=== PATIENT | female | born 1945 | race Caucasian/White ===

== ENCOUNTER → 2017-12-10 | Outpatient (CLI) | payer MEDICARE, BC ==
[~2017-12-10] MED LIST: HYDACE5 PO; IBUP400
== END | disposition home or self-care (01) ==
LOC: LAB SHORT 08:58 → LAB EV 08:58
DX: J34.89 Other specified disorders of nose and nasal sinuses (principal)
CPT/HCPCS: 87070; 87205

== ENCOUNTER → 2018-09-21 | Outpatient (CLI) | payer MEDICARE, BC ==
[2018-09-21 14:24] LABS: Stool Occult Bld Immuno 1 Negative (NEGATIVE)
== END | disposition home or self-care (01) ==
LOC: LAB 12:50 → LAB SHORT 12:50
PROVIDERS: Family Medicine
DX: Z12.11 Encounter for screening for malignant neoplasm of colon (principal)
CPT/HCPCS: G0328

== ENCOUNTER 2019-01-28 08:10 | Day surgery (SDC) | payer MEDICARE, BC ==
[~2019-01-28] VITALS: Ht 152.4 cm; Wt 66.9 kg
[~2019-01-28 08:10] MED LIST changes: +BENADRYL25 MG; +LOSARTAN-HCTZ1 EACH PO
[2019-01-28] MEDS ORDERED: [UNRECOGNIZED DRUG - SUPPLY] (09:06)
--- NOTE | 2019-01-28 11:21 | NUR ---
01/28/19 1121 Reva Taylor IV DC'D AT 1117 O2 SATS REMAIN AT 97% WITH RA. KIMMIE WILL BE MOVED TO STEPDOWN UNIT.
--- NOTE | 2019-01-28 12:24 | NUR ---
01/28/19 1224 Reva Taylor PATIENT C/O INTERMITTENT DIZZINESS AND NAUSEA, MEDICATED WITH REGLAN UPON ARRIVAL TO STEPDOWN. SLIGHT IMPROVEMENT IN NAUSEA, PATIENT UP TO BEDSIDE COMMODE, IN ROOM. PATIENT STILL C/O PAIN AND NAUSEA, ORDERS RECEIVED FOR PHENERGAN 6.25MG IV. VSS. WILL CONTINUE TO MONITOR PATIENT.
== END 2019-01-28 13:47 | disposition home or self-care (01) ==
LOC: ORSCSDS 08:10
PROVIDERS: Orthopaedic Surgery
PROC: 0SBC4ZZ Excision of Right Knee Joint, Percutaneous Endoscopic Approach (ICD-10-PCS; principal; 2019-01-28 10:00)
DX: S72.434A Nondisplaced fracture of medial condyle of right femur, initial encounter for closed fracture (principal); M11.261 Other chondrocalcinosis, right knee; S83.241A Other tear of medial meniscus, current injury, right knee, initial encounter; I10 Essential (primary) hypertension; J45.909 Unspecified asthma, uncomplicated; Z79.899 Other long term (current) drug therapy
CPT/HCPCS: A9270-GY; C1713; J0171; J0690; J1100; J1885; J2250; J2405; J2550; J2704; J2765; J3010; J7120

== ENCOUNTER → 2020-08-14 | Outpatient (CLI) | payer MEDICARE, BC ==
[~2020-08-14] MED LIST changes: +[UNRECOGNIZED DRUG - SUPPLY]
== END | disposition home or self-care (01) ==
LOC: LAB 07:29 → LAB SHORT 07:29
DX: L57.0 Actinic keratosis (principal)
CPT/HCPCS: 88305

== ENCOUNTER 2023-07-30 11:48 | Emergency (ER) | payer MEDICARE, BC ==
[~2023-07-30] VITALS: Ht 160 cm; Wt 62.1 kg
[2023-07-30] MEDS ORDERED: NS 1,000 ML IV SCH ×2 (11:55→13:30)
[2023-07-30] MEDS ORDERED: CANDESARTAN CIL16 MG PO (12:01)
[2023-07-30] MEDS ORDERED: Ondansetron HCl 2 MG / ML 2ML Vial IV ONE (12:20)
[2023-07-30 12:49] LABS: Albumin, Blood 3.5 g/dL (3.4-5.0); Albumin/Globulin Ratio 0.9 (0.8-1.8); Bilirubin, Total 0.7 mg/dL (0.1-1.0); Bun/Creatinine Ratio 21.1 (12.0-20.0); Calcium, Blood 10.2 mg/dL (8.5-10.1); Creatinine, Blood 1.33 mg/dL (0.40-1.00); Globulin, Blood 3.8 g/dL (2.2-4.0); Potassium, Blood 4.1 mmol/L (3.5-5.5); Total Protein, Blood 7.3 g/dL (6.4-8.2)
[2023-07-30 13:01] LABS: BASOPHILS ABSOLUTE AUTO 0.03 K/mm3 (0.00-0.23); BASOPHILS PERCENT AUTO 0 % (0-2); EOSINOPHILS ABSOLUTE AUTO 0.01 K/mm3 (0.00-0.68); EOSINOPHILS PERCENT AUTO 0 % (0-6); Hematocrit 35.4 % (33.0-51.0); Hemoglobin 11.4 g/dL (11.5-16.0); IMMATURE GRAN ABSOLUTE AUTO 0.08 K/mm3 (0.00-0.10); IMMATURE GRAN PERCENT AUTO 1 % (0-1); LYMPHOCYTES ABSOLUTE AUTO 0.51 K/mm3 (0.84-5.20); LYMPHOCYTES PERCENT AUTO 7 % (21-46); MONOCYTES ABSOLUTE AUTO 0.36 K/mm3 (0.16-1.47); MONOCYTES PERCENT AUTO 5 % (4-13); Mean Corpuscular HGB 29.1 pg (26.0-34.0); Mean Corpuscular HGB Conc 32.2 g/dL (31.5-36.5); Mean Corpuscular Volume 90 fL (80-100); Mean Platelet Volume 8.9 fL (9.1-12.4); NEUTROPHILS ABSOLUTE AUTO 6.51 K/mm3 (1.96-9.15); NEUTROPHILS PERCENT AUTO 87 % (41-73); Platelet Count 154 K/mm3 (150-400); RDW Coefficient Variation 14.4 % (11.7-14.2); RDW Standard Deviation 47.3 fL (35.1-46.3); Red Blood Cell Count 3.92 M/mm3 (3.80-5.20)
[2023-07-30 14:30] VITALS: BP 110/64
== END 2023-07-30 15:09 | disposition home or self-care (01) ==
LOC: ER 11:48
PROVIDERS: Emergency Medicine
DX: R55 Syncope and collapse (principal); E86.0 Dehydration
CPT/HCPCS: 80053; 84484; 85025; 93005; 93010; 96361; 96374; 99284-25; J2405; J7030